=== PATIENT | male | born 2000 | race Caucasian/White ===

== ENCOUNTER 2019-12-20 12:45 | Emergency (ER) | payer BC ==
[~2019-12-20] VITALS: Ht 190.5 cm; Wt 72.7 kg
[2019-12-20 12:49] VITALS: TEMP 97.1
[2019-12-20 13:29] LABS: BASO # 0.1 (0.0-0.2); BASO % 0.5 % (0.0-2.0); EOS % 0.2 % (0-4.0); GRAN # 9.4 (1.4-6.5); GRAN % 85.6 % (42.2-75.2); HEMATOCRIT 44.5 % (36.0-47.0); HEMOGLOBIN 15.3 g/dl (12.5-16.1); LYMPH # 0.9 (1.2-3.4); LYMPH % 8.4 % (20.0-51.0); MEAN CELL VOLUME 86 fl (80.0-95.0); MEAN CORPUSCULAR HEMOGLOBIN 30 pg (26.0-32.0); MEAN CORPUSCULAR HGB CONC 34 g/dl (33.0-37.0); MEAN PLATELET VOLUME 9.6 fl (7.4-10.4); MONO # 0.5 (0.1-0.6); MONO % 4.9 % (1.7-9.3); PLATELET COUNT 216 K/mm3 (130-400); RED BLOOD COUNT 5.17 M/mm3 (4.20-5.60); REDCELL DISTRIBUTION WIDTH-CV 12.8 % (11.5-14.5)
[2019-12-20 13:41] LABS: ALANINE AMINOTRANSFERASE 14 U/L (4-49); ALBUMIN 4.8 gm/dL (3.5-5.0); ALKALINE PHOSPHATASE 85 U/L (50-136); ANION GAP 9 mmol/L (7-16); AST,SGOT 19 U/L (15-37); BILIRUBIN,TOTAL 0.7 mg/dL (0.0-1.0); BLOOD UREA NITROGEN 16 mg/dL (9-20); CALCIUM 9.6 mg/dL (8.4-10.2); CARBON DIOXIDE 28 mmol/L (22-30); CHLORIDE 100 mmol/L (98-107); CREATININE, serum 0.95 (0.66-1.25); GLUCOSE 128 mg/dL (74-106); LIPASE 143 U/L (23-300); SODIUM 138 mmol/L (137-145); TOTAL PROTEIN 7.6 gm/dL (6.4-8.2)
[2019-12-20 13:47] LABS: C-REACTIVE PROTEIN < 0.5 mg/dL (0.0-0.9)
[2019-12-20 15:56] VITALS: BP 124/69; PULSE 71
[2019-12-20] MEDS ORDERED: ZOFRAN ODT4 MG PO (16:35)
== END 2019-12-20 16:00 | disposition home or self-care (01) ==
LOC: COL.ER 12:45 → EDSEX 12:46 → COL.ER 16:00
PROVIDERS: Nurse Practitioner
DX: R10.30 Lower abdominal pain, unspecified (principal); R11.2 Nausea with vomiting, unspecified; F17.290 Nicotine dependence, other tobacco product, uncomplicated
CPT/HCPCS: J2405; J7030; Q9967